=== PATIENT | female | born 1965 | race Two or more races ===

== ENCOUNTER 2024-08-21 12:45 | Inpatient (IN) | payer OTHER ==
[~2024-08-21] VITALS: Ht 157.5 cm; Wt 95.3 kg
[2024-08-21 13:43] VITALS: BP 126/81
[2024-08-21] MEDS ORDERED: ZESTRIL10 M1 (13:50)
[2024-08-21] MEDS ORDERED: SYNTHROID125 MCG (13:50)
[2024-08-21 14:38] LABS: RH POSITIVE
[2024-08-30] MEDS ORDERED: METRONIDAZOLE/SODIUM CHLORIDE 500 MG/100 ML PIGGYBACK IV SCH (09:00)
[2024-08-30] MEDS ORDERED: SURGIFLO APPLICATOR 1 EACH APPL TOP ONE (09:00)
[2024-08-30] MEDS ORDERED: CHLORHEXIDINE GLUCONATE 120 ML BOTTLE TOP ONE (09:00)
[2024-08-30] MEDS ORDERED: HEMOSTATIC MATRIX 1 KIT KIT TOP ONE (09:00)
[2024-08-30] MEDS ORDERED: CEFAZOLIN SODIUM 2,000 MG in 0.9 % SODIUM CHLORIDE 100 ML IV ONE (09:00)
[2024-08-30] MEDS ORDERED: POVIDONE-IODINE 118 ML BOTT TOP ONE (09:00)
[2024-08-30] MEDS ORDERED: RINGERS SOLUTION,LACTATED 1,000 ML IV SCH (09:45)
[2024-08-30] MEDS ORDERED: KETOROLAC TROMETHAMINE 30 MG VIAL IV ONE (09:45)
[2024-08-30] MEDS ORDERED: MORPHINE SULFATE 4 MG/ML CARTRIDGE IV PRN (09:45)
[2024-08-30] MEDS ORDERED: SUGAMMADEX SODIUM 200 MG/2 ML VIAL IV ONE (10:00)
[2024-08-30] MEDS ORDERED: MORPHINE SULFATE 4 MG/ML VIAL IV ONE (11:25)
[2024-08-30] MEDS ORDERED: KETOROLAC TROMETHAMINE 30 MG VIAL IM SCH (12:00)
[2024-08-30] MEDS ORDERED: SIMETHICONE 125 MG CAPSULE PO SCH (13:00)
[2024-08-30 13:40] VITALS: BP 126/81
[2024-08-30 14:19] LABS: HEMOGLOBIN 13.4 g/dL (12.0-15.00); MEAN CELL VOLUME 85.7 fL (80.00-100.00); MEAN CORPUSCULAR HEMOGLOBIN 28.1 pg (27.00-32.0); MEAN CORPUSCULAR HGB CONC 32.8 g/dl (32.0-36.0); PLATELET COUNT 210 K/uL (150-450); RED BLOOD COUNT 4.79 M/uL (4.00-6.00); RED CELL DISTRIBUTION WIDTH 13.5 % (11.5-14.5)
[2024-08-30 14:41] LABS: ALBUMIN 3.3 gm/dL (3.4-5.0); CALCIUM 8.8 mg/dL (8.5-10.1); CREATININE SERUM 0.73 mg/dL (0.55-1.02); GFR 81.32; PHOSPHOROUS 2.9 mg/dL (2.5-4.9); POTASSIUM 4.17 mEq/L (3.5-5.1)
[2024-08-30 16:58] VITALS: BP 102/60; O2SAT 99
[2024-08-30] MEDS ORDERED: CEFAZOLIN SODIUM 1,000 MG VIAL IV SCH (17:00)
[2024-08-30] MEDS ORDERED: GABAPENTIN 300 MG CAPSULE PO SCH (17:00)
[2024-08-30] MEDS ORDERED: FAMOTIDINE/PF 20 MG/2 ML VIAL IV PUSH SCH (21:00)
[2024-08-31] VITALS: BP 92/60
[2024-08-31] MEDS ORDERED: LEVOTHYROXINE SODIUM 125 MCG TABLET PO SCH (06:00)
[2024-08-31 07:04] LABS: HEMATOCRIT 35.9 % (36.0-45.00); HEMOGLOBIN 12.2 g/dL (12.0-15.00); MEAN CORPUSCULAR HEMOGLOBIN 28.9 pg (27.00-32.0); MEAN CORPUSCULAR HGB CONC 33.9 g/dl (32.0-36.0); PLATELET COUNT 181 K/uL (150-450); RED BLOOD COUNT 4.22 M/uL (4.00-6.00); RED CELL DISTRIBUTION WIDTH 13.8 % (11.5-14.5)
[2024-08-31 08:43] VITALS: BP 100/50
[2024-08-31 09:00] LABS: ALBUMIN 2.8 gm/dL (3.4-5.0); CALCIUM 8.4 mg/dL (8.5-10.1); CREATININE SERUM 0.79 mg/dL (0.55-1.02); GFR 74.23; PHOSPHOROUS 2.9 mg/dL (2.5-4.9); POTASSIUM 4.7 mEq/L (3.5-5.1)
[2024-08-31] MEDS ORDERED: ENOXAPARIN SODIUM 40 MG/0.4 ML SYRINGE SUBCUTANEO SCH (09:00)
[2024-08-31] MEDS ORDERED: IBUprofen 800 MG TABLET PO SCH (09:00)
[2024-08-31] MEDS ORDERED: METOCLOPRAMIDE HCL 5 MG/ML VIAL IV SCH (09:00)
[2024-08-31] MEDS ORDERED: LISINOPRIL 10 MG TABLET PO SCH (09:00)
== END 2024-08-31 11:31 | disposition home or self-care (01) | DRG 743 ==
LOC: O/R 08-30 05:30 → OB/GYN 08-30 05:30 → SURH 08-30 07:00 → OB/GYN 08-30 13:50
PROVIDERS: ADMIT Obstetrics & Gynecology Gynecologic Oncology; ATTEND Obstetrics & Gynecology Gynecologic Oncology
PROC: 0UT74ZZ Resection of Bilateral Fallopian Tubes, Percutaneous Endoscopic Approach (ICD-10-PCS; 2024-08-30)
PROC: 0UT24ZZ Resection of Bilateral Ovaries, Percutaneous Endoscopic Approach (ICD-10-PCS; 2024-08-30)
PROC: 07BC4ZZ Excision of Pelvis Lymphatic, Percutaneous Endoscopic Approach (ICD-10-PCS; 2024-08-30)
PROC: 8E0W4CZ Robotic Assisted Procedure of Trunk Region, Percutaneous Endoscopic Approach (ICD-10-PCS; 2024-08-30)
PROC: 0UT94ZZ Resection of Uterus, Percutaneous Endoscopic Approach (ICD-10-PCS; principal; 2024-08-30 07:00)
DX: N85.02 Endometrial intraepithelial neoplasia [EIN] (principal); D25.1 Intramural leiomyoma of uterus; D25.2 Subserosal leiomyoma of uterus; Z20.822 Contact with and (suspected) exposure to COVID-19
CPT/HCPCS: 58548; S2900

== ENCOUNTER 2025-10-18 10:55 | Emergency (ER) | payer OTHER ==
[~2025-10-18] VITALS: Ht 157.5 cm; Wt 88.5 kg
[~2025-10-18 10:55] MED LIST: SYNTHROID125 MCG; ZESTRIL10 M1
[2025-10-18] MEDS ORDERED: ATORVASTATIN CA10 MG PO (12:39)
[2025-10-18 14:24] LABS: BASO % 0.3 % (0.1-1.2); EOS # 0.10 (0.04-0.54); EOS % 1.0 % (0.7-7.0); LYMPH # 2.63 (1.18-3.74); LYMPH % 26.9 % (19.3-53.1); MEAN PLATELET VOLUME 11.20 fl (9.4-12.4); MONO # 0.71 (0.24-0.82); MONO % 7.3 % (4.7-12.5); NEUT # 6.30 (1.56-6.13); NEUT % 64.3 % (34.0-71.1); RED CELL DISTRIBUTION WIDTH 13.2 % (11.6-14.4)
[2025-10-18 15:00] LABS: ALT/SGPT 23.0 U/L (12-78); AST/SGOT 12.0 U/L (15-37); BILIRUBIN TOTAL 0.34 mg/dL (0.3-1.2); BUN CREA RATIO 23.0 (7.0-25.0); CREATININE SERUM 0.78 mg/dL (0.55-1.02); GFR 75.08; GLOBULINA 3.4 G/DL (2.4-3.5); GLUCOSE FASTING 84.0 mg/dL (65-100); OSMOLALITY SERUM 286.0 MOSM/KG (275-295)
[2025-10-18 15:05] LABS: URINE APPEARANCE Cloudy; URINE BILIRRUBIN Negative (NEGATIVE); URINE BLOOD Large; URINE COLOR Yellow; URINE GLUCOSE Negative (NEGATIVE); URINE KETONE Negative (NEGATIVE); URINE LEUKOCYTE Moderate; URINE NITRATE Negative; URINE PROTEIN Negative (NEGATIVE); URINE UROBILINOGEN 1.0 E.U./dl
[2025-10-18 15:09] LABS: URINE EPITHELIAL CELLS 41.2 uL (0.0-38.8); URINE RBC 243.3 uL (0.0-20.8); URINE WBC 195.3 uL (0.0-23.2)
[2025-10-18 15:13] LABS: URINE CAST 0.14 uL (0.0-1.40)
== END 2025-10-18 16:22 | disposition home or self-care (01) ==
LOC: ER 10:56
PROVIDERS: General Practice
DX: N93.8 Other specified abnormal uterine and vaginal bleeding (principal)